=== PATIENT | male | born 1945 | race Hispanic/Latino ===

== ENCOUNTER 2024-04-11 07:13 | Day surgery (SDC) | payer OTHER ==
[~2024-04-11] VITALS: Ht 180.3 cm; Wt 129.3 kg
[2024-04-11] VITALS (12 sets, daily range): BP systolic 131–166; BP diastolic 58–108; PULSE 54–66; RESP 9–21
[2024-04-11] MEDS ORDERED: TAMS-1 PO (10:50)
[2024-04-11] MEDS ORDERED: METF-444 PO (10:50)
[2024-04-11] MEDS ORDERED: METO-391 PO (10:50)
[2024-04-11] MEDS ORDERED: HYDR-3421 PO (10:50)
[2024-04-11] MEDS ORDERED: OXYC5TAB3 PO (10:50)
[2024-04-11] MEDS ORDERED: METH-811 PO (10:50)
[2024-04-11] MEDS ORDERED: CITALOPRAM PO (10:50)
[2024-04-11] MEDS ORDERED: TOPI100T37 PO (10:50)
[2024-04-11] MEDS ORDERED: NAPR-1023 PO (10:50)
[2024-04-11] MEDS ORDERED: MISO200T82 PO (10:50)
[2024-04-11] MEDS ORDERED: THIAMINE PO (10:50)
[2024-04-11] MEDS ORDERED: MECL-302 PO (10:50)
[2024-04-11] MEDS ORDERED: ASPI-1197 PO (10:50)
[2024-04-11] MEDS ORDERED: RANITIDINE PO (10:50)
[2024-04-11] MEDS ORDERED: TRAZ-187 PO (10:50)
[2024-04-11] MEDS ORDERED: SIMV40TA59 PO (10:50)
[2024-04-11] MEDS: 0.9%NACL 1000ML 1,000 ML IV ONE (10:55)
[2024-04-11] MEDS ORDERED: PROPOFOL 10 MG/ML 20ML VIAL IV ONE (11:42)
== END 2024-04-11 13:20 | disposition home or self-care (01) ==
LOC: ENDO 07:13
PROVIDERS: ATTEND Internal Medicine Gastroenterology
DX: K92.0 Hematemesis (principal); K29.50 Unspecified chronic gastritis without bleeding; K26.3 Acute duodenal ulcer without hemorrhage or perforation; K25.9 Gastric ulcer, unspecified as acute or chronic, without hemorrhage or perforation; K21.9 Gastro-esophageal reflux disease without esophagitis; K29.80 Duodenitis without bleeding; G47.30 Sleep apnea, unspecified; F41.9 Anxiety disorder, unspecified; K59.00 Constipation, unspecified; E11.9 Type 2 diabetes mellitus without complications; I10 Essential (primary) hypertension; E78.5 Hyperlipidemia, unspecified; G47.00 Insomnia, unspecified; N17.9 Acute kidney failure, unspecified; Z88.2 Allergy status to sulfonamides; Z88.8 Allergy status to other drugs, medicaments and biological substances; Z79.82 Long term (current) use of aspirin; Z79.84 Long term (current) use of oral hypoglycemic drugs; Z79.899 Other long term (current) drug therapy; Z98.890 Other specified postprocedural states
CPT/HCPCS: 82948 ×2; 43239; J7030 ×2; J2704; A4620; A4215; A4223; A7002; A4222; A4221; A4663; A4606; J3490